=== PATIENT | female | born 1965 ===

== ENCOUNTER 2017-08-12 17:58 | Emergency (ER) | payer OTHER ==
[2017-08-12 18:05] VITALS: BMI 35.4
[2017-08-12 20:23] LABS: BASO # 0.02 K/mm3 (0.0-2.0); BASO % 0.2 % (0.0-3.0); EOS # 0.1 (0.0-0.7); EOS % 0.8 % (1.5-5.0); GRAN # 5.29 (1.4-6.5); GRAN % 61.6 % (50.0-68.0); HEMOGLOBIN 14.5 g/dL (12.0-16.0); LYMPH # 2.7 (1.2-3.4); LYMPH % 31.5 % (22.0-35.0); MEAN CELL VOLUME 91.7 fl (80.0-105.0); MEAN CORPUSCULAR HEMOGLOBIN 30.8 pg (25.0-35.0); MEAN CORPUSCULAR HGB CONC 33.6 g/dl (31.0-37.0); MEAN PLATELET VOLUME 11.2 fl (7.0-11.0); MONO # 0.5 (0.1-0.6); MONO % 5.9 % (1.0-6.0); RBC 4.71 10^6/uL (3.5-6.1); RED CELL DISTRIBUTION WIDTH 13.2 % (11.5-14.5); WHITE BLOOD COUNT 8.6 10^3/ul (4.5-11.0)
[2017-08-12 20:29] LABS: ALB/GLOB RATIO 1.3 (1.1-1.8); ALBUMIN 4.5 g/dL (3.0-4.8); CALCIUM 10.4 mg/dL (8.4-10.5); GFR AFRICAN-AMERICAN > 60; GFR NON-AFRICAN AMERICAN > 60
[2017-08-12 20:31] LABS: ALT/SGPT 42 U/L (7-56); AST/SGOT 38 U/L (14-36); BLOOD UREA NITROGEN 15 mg/dL (7-21); MAGNESIUM 2.2 mg/dL (1.7-2.2)
[2017-08-12 20:41] LABS: TROPONIN I < 0.01 ng/mL
[2017-08-12 21:09] VITALS: RESP 17
--- NOTE | 2017-08-12 21:13 | ED PDOC ---
Arrival/HPI - General Chief Complaint: Anxiety Time Seen by Provider: 08/12/17 19:04 Historian: Patient - History of Present Illness Narrative History of Present Illness (Text): 08/12/17 19:15 Miranda Guzman is a 51 year old female, whose past medical history includes hypertension and anxiety, who presents to the Emergency department complaining of anxiety. Patient states she has been having anxiety attacks and had 1 last week while in [place]. Patient states tonight she had another panic attack tonight, but also experienced palpitations and numbness in her left hand. Patient denies any fever, chills, chest pain, shortness of breath, nausea , vomiting, diarrhea, urinary symptoms, back pain, neck pain, headache, dizziness, or any other complaints. Symptom Onset: Gradual Symptom Course: Unchanged Activities at Onset: Light Context: Home Past Medical History - Provider Review Nursing Documentation Reviewed: Yes - Reproductive Menopause: Yes - Cardiac Hx Cardiac Disorders: Yes Hx Hypertension: Yes - Pulmonary Hx Respiratory Disorders: No - Neurological Hx Neurological Disorder: No - HEENT Hx HEENT Disorder: No - Renal Hx Renal Disorder: No - Endocrine/Metabolic Hx Endocrine Disorders: No - Hematological/Oncological Hx Blood Disorders: No - Integumentary Hx Dermatological Disorder: No - Musculoskeletal/Rheumatological Hx Musculoskeletal Disorders: No - Gastrointestinal Hx Gastrointestinal Disorders: No - Genitourinary/Gynecological Hx Genitourinary Disorders: No - Psychiatric Hx Psychophysiologic Disorder: Yes Hx Anxiety: Yes Hx Substance Use: No - Surgical History Hx Section: Yes Hx Cholecystectomy: Yes - Anesthesia Hx Anesthesia: Yes Family/Social History - Physician Review Nursing Documentation Reviewed: Yes Family/Social History: Unknown Family HX Smoking Status: Never Smoked Hx Alcohol Use: No Hx Substance Use: No Allergies/Home Meds Allergies/Adverse Reactions: Allergies No Known Allergies Allergy (Verified 08/12/17 18:26) Home Medications: Home Meds Medication Instructions Recorded Confirmed Enalapril Maleate [Vasotec] 10 mg PO DAILY 08/12/17 08/12/17 LORazepam [Ativan] 1 mg PO DAILY 08/12/17 08/12/17 Review of Systems - Physician Review All systems were reviewed & negative as marked: Yes - Review of Systems Constitutional: Normal. absent: Fevers Eyes: Normal ENT: Normal Respiratory: Normal. absent: SOB, Cough Cardiovascular: Palpitations. absent: Chest Pain Gastrointestinal: Normal. absent: Abdominal Pain, Diarrhea, Nausea, Vomiting Genitourinary Female: Normal. absent: Dysuria, Frequency, Hematuria, Urine Output Changes Musculoskeletal: Normal. absent: Back Pain, Neck Pain Skin: Normal. absent: Rash Neurological: Normal. absent: Headache, Dizziness Endocrine: Normal Hemo/Lymphatic: Normal Psychiatric: Anxiety Physical Exam Vital Signs Reviewed: Yes Vital Signs Temp Pulse Resp BP Pulse Ox 08/12/17 21:44 98.0 F 72 17 157/84 H 98 08/12/17 21:08 85 17 152/85 H 95 08/12/17 18:03 98.6 F 81 18 180/80 H 97 Temperature: Afebrile Blood Pressure: Hypertensive Pulse: Regular Respiratory Rate: Normal Appearance: Positive for: Well-Appearing, Non-Toxic, Comfortable Pain Distress: None Mental Status: Positive for: Alert and Oriented X 3 - Systems Exam Head: Present: Atraumatic, Normocephalic Pupils: Present: PERRL Extroacular Muscles: Present: EOMI Conjunctiva: Present: Normal Mouth: Present: Moist Mucous Membranes Neck: Present: Normal Range of Motion Respiratory/Chest: Present: Clear to Auscultation, Good Air Exchange. No: Respiratory Distress, Accessory Muscle Use Cardiovascular: Present: Regular Rate and Rhythm, Normal S1, S2. No: Murmurs Abdomen: Present: Normal Bowel Sounds. No: Tenderness, Distention, Peritoneal Signs Back: Present: Normal Inspection Upper Extremity: Present: Normal Inspection. No: Cyanosis, Edema Lower Extremity: Present: Normal Inspection. No: Edema Neurological: Present: GCS=15, CN II-XII Intact, Speech Normal, Motor Func Grossly Intact, Normal Sensory Function, Normal Cerebellar Funct, Gait Normal, Memory Normal Skin: Present: Warm, Dry, Normal Color. No: Rashes Psychiatric: Present: Alert, Oriented x 3, Normal Insight, Normal Concentration Medical Decision Making ED Course and Treatment: 08/12/17 19:15 Impression: 51 year old female complaining of anxiety, palpitations, and left hand numbness. Differential Diagnosis included but are not limited to: anxiety vs. hypertension Plan: -- EKG -- Labs, cardiac enzymes -- Urinalysis -- Ativan -- Reassess and disposition Progress Notes: Reviewed EKG, NSR at [address]-segment elevations or depressions, no T-wave inversions, normal intervals. 08/12/17 21:40 On reevaluation the patient feels 100% better and is in no acute distress. I have discussed the results and plan with the patient, who expresses understanding. Patient given the opportunity to ask question, all questions were answered and there is agreement with the plan to discharge the patient home. Patient is stable for discharge. Patient was instructed to follow up with physician/clinic in 1-2 days or return if symptoms persist/worsen or new concerning symptoms arise. Reassessment Condition: Re-examined, Improved - Lab Interpretations Lab Results: 08/12/17 20:10 08/12/17 20:10 Lab Results 08/12/17 20:10: Sodium 144, Potassium 5.0, Chloride 108 H, Carbon Dioxide 25, Anion Gap 16, BUN 15, Creatinine 0.7, Est GFR ( Amer) > 60, Est GFR (Non- Af Amer) > 60, Random Glucose 107, Calcium 10.4, Magnesium 2.2, Total Bilirubin 0.5, AST 38 H, ALT 42, Alkaline Phosphatase 69, Lactate Dehydrogenase 620, Total Creatine Kinase 115, Troponin I < 0.01, Total Protein 8.0, Albumin 4.5, Globulin 3.5, Albumin/Globulin Ratio 1.3 08/12/17 20:10: WBC 8.6, RBC 4.71, Hgb 14.5, Hct 43.2, MCV 91.7, MCH 30.8, MCHC 33.6, RDW 13.2, Plt Count 232, MPV 11.2 H, Gran % 61.6, Lymph % (Auto) 31.5, [place] % (Auto) 5.9, Eos % (Auto) 0.8 L, Baso % (Auto) 0.2, Gran # 5.29, Lymph # ( Auto) 2.7, [place] # (Auto) 0.5, Eos # (Auto) 0.1, Baso # (Auto) 0.02 I have reviewed the lab results: Yes - EKG Interpretation Interpreted by ED Physician: Yes Type: 12 lead EKG - Medication Orders Current Medication Orders: Discontinued Medications Lorazepam (Ativan) 0.5 mg PO ONCE ONE PRN Reason: Protocol Stop: 08/12/17 19:58 Last Admin: 08/12/17 20:54 Dose: 0.5 mg - Scribe Statement The provider has reviewed the documentation as recorded by the Roneniberin Melton All medical record entries made by the Roneniberin were at my direction and personally dictated by me. I have reviewed the chart and agree that the record accurately reflects my personal performance of the history, physical exam, medical decision making, and the department course for this patient. I have also personally directed, reviewed, and agree with the discharge instructions and disposition. Disposition/Present on Arrival - Present on Arrival Any Indicators Present on Arrival: No History of DVT/PE: No History of Uncontrolled Diabetes: No Urinary Catheter: No History of Decub. Ulcer: No History Surgical Site Infection Following: None - Disposition Have Diagnosis and Disposition been Completed?: Yes Diagnosis: Anxiety, Hypertension Disposition: HOME/ ROUTINE Disposition Time: 21:40 Condition: GOOD Discharge Instructions (ExitCare): High Blood Pressure (DC), Anxiety, Adult (DC ) Referrals: PCP,NO [Primary Care Provider] - Follow up with primary Forms: [employer] [facility] ([place]ian)
[2017-08-12 21:46] VITALS: BP 157/84; PULSE 72; TEMP 98; O2SAT 98
--- NOTE | 2017-08-13 19:12 | CARD ---
APPROVED REPORT EKG Measurement Heart [id number] <Conclusion> Normal sinus rhythm Normal ECG
== END 2017-08-12 21:46 | disposition home or self-care (01) ==
LOC: ED 17:58
DX: F41.9 Anxiety disorder, unspecified (principal); I10 Essential (primary) hypertension